=== PATIENT | male | born 1980 | race Caucasian/White ===

== ENCOUNTER 2020-07-27 20:53 | Emergency (ER) | payer SELFPAY ==
[~2020-07-27] VITALS: Ht 185.4 cm; Wt 84.5 kg
[2020-07-27 21:07] VITALS: BP 144/85
[2020-07-27] MEDS ORDERED: IBUPROFEN 200 MG TABLET. PO ONE (21:30)
[2020-07-27] MEDS ORDERED: HYDROcodone/APAP 5/325MG 1 TAB TABLET PO ONE (21:30)
[2020-07-27] MEDS ORDERED: BUPIVACAINE MPF 0.5% 30 ML VIAL. INJ ONE (21:45)
[2020-07-27] MEDS ORDERED: AMOXICILLIN/K CLAV 875/125MG TABLET. PO ONE (22:15)
[2020-07-27] MEDS ORDERED: AMOX1TAB61 PO (22:15)
[2020-07-27] MEDS ORDERED: IBUP-1007 PO (22:15)
--- NOTE | 2020-07-27 22:16 | PHYS DOC ---
General Adult EDM: Chief Complaint: DENTAL PROBLEM HPI: HPI: Patient is a 40 year old male presents emergency department complaining of lower rear left molar dental pain. Patient states his back 3 teeth on the lower side have been hurting all day today. Patient states he has been having off-and-on dental pain for the past 6 months, has not been able to get into see a dentist because he had lost his job and did not have dental insurance. Patient states she now has a new job and estimates his dental insurance "kicks in" he will see a dentist to take care of his teeth. Patient denies any loss of taste or loss of smell. Patient denies any throat pain, difficulty swallowing, loss of sensation to his face or tongue. Patient denies any chest pain, shortness of breath, abdominal pain, nausea, vomiting, diarrhea. Patient denies any allergies to medications, states that he has anxiety problems and takes a medication at home and he cannot remember the name of. Patient denies any surgical history. Patient denies headache, visual changes, neurological deficits. Patient denies pain in his neck. Patient denies any other physical complaints or physical concerns. Review of Systems: Review of Systems: 14 body systems of review of systems have been reviewed. See HPI for pertinent positives and negative responses, otherwise all other systems are negative, nonpertinent or noncontributory. Heart Score: C/O Chest Pain: No Risk Factors: Risk Factors: DM, Current or recent (<one month) smoker, HTN, HLP, family history of CAD, obesity. Risk Scores: Score 0 - 3: 2.5% MACE over next 6 weeks - Discharge Home Score 4 - 6: 20.3% MACE over next 6 weeks - Admit for Clinical Observation Score 7 - 10: 72.7% MACE over next 6 weeks - Early Invasive Strategies Current Medications: Current Medications Medications (Trade) Dose Ordered Sig/Howard Start Time Stop Time Status Last Admin Dose Admin Acetaminophen/ Hydrocodone Bitart (Lortab 5/325) 2 tab 1X ONCE 07/27/20 21:30 07/27/20 21:32 DC 07/27/20 21:43 2 TAB Bupivacaine HCl (Sensorcaine Mpf 0.5%) 30 ml 1X ONCE 07/27/20 21:45 07/27/20 21:46 DC 07/27/20 21:43 30 ML Ibuprofen (Motrin) 600 mg 1X ONCE 07/27/20 21:30 07/27/20 21:32 DC 07/27/20 21:43 600 MG Allergies: Allergies: Allergies Coded Allergies Type Severity Reaction Last Updated Verified No Known Drug Allergies 07/27/20 No Physical Exam: PE: Constitutional: Well developed, well nourished, no acute distress, non-toxic appearance. 40-year-old male, grimacing holding his left side of his face. HENT: Normocephalic, atraumatic, bilateral external ears normal, oropharynx moist, no oral exudates, nose normal. Oropharynx pink, not erythematous, no tonsillar swelling, no deep tissue infectious process appreciated, no postnasal drip. Poor dentition, multiple teeth with decay, we are 3 molars on left side and multiple stages of tooth decay, no purulent drainage appreciated. Eyes: PERRLA, EOMI, conjunctiva normal, no discharge. Neck: Normal range of motion, no tenderness, supple, no stridor. No nuchal rigidity, no meningismus signs, no midline spinal tenderness appreciated. Cardiovascular:Heart rate regular rhythm, no murmur, heart sounds S1-S2 auscultation. Lungs & Thorax: Bilateral breath sounds clear to auscultation all lung arreaga. Abdomen: Bowel sounds normal, soft, no tenderness, no masses, no pulsatile masses. Skin: Warm, dry, no erythema, no rash. Back: No tenderness, no CVA tenderness. Extremities: No tenderness, no cyanosis, no clubbing, ROM intact, no edema. Distal cap refill less than 2 seconds, +2/4 pulses. Neurologic: Alert and oriented X 3, normal motor function, normal sensory function, no focal deficits noted. Psychologic: Affect normal, judgement normal, mood normal. Current Patient Data: Vital Signs: Vital Signs Date Time Temp Pulse Resp B/P (MAP) Pulse Ox O2 Delivery O2 Flow Rate FiO2 07/27/20 21:43 16 97 Room Air EKG: EKG: [] Radiology/Procedures: Radiology/Procedures: [] Course & Med Decision Making: Course & Med Decision Making Pertinent Labs and Imaging studies reviewed. (See chart for details) 40-year-old male, vital signs reviewed, presents emergency department complaint of dental pain. Physical examination showed dental caries with various stages of dental decay. Patient started on 875 Augmentin in the ED today. Patient given 600 mg ibuprofen p.o., 2 tablets of 5/325 mg [place] in the ED today. Procedure note: Performed inferior alveolar nerve dental block using 2 cc 0.5% bupivacaine, patient tolerated well. Upon reexamination of the patient, patient states his dental pain has been relieved. Patient gave verbal understanding of discharge home instructions, antibiotic prescription use, follow-up with dentist soon, return to emergency department precautions and concerns, patient discharged home. Mal Disclaimer: Mal Disclaimer: This electronic medical record was generated, in whole or in part, using a voice recognition dictation system. Departure Departure Impression: Primary Impression: Dental caries Additional Impression: Dentalgia Disposition: 01 DC HOME SELF CARE/HOMELESS Condition: IMPROVED Referrals: NO PCP (PCP) Patient Instructions: Dental Caries Additional Instructions: Please take antibiotic as prescribed, follow-up with your dentist soon. Return to the emergency department for worsening symptoms or other concerns. EMERGENCY DEPARTMENT GENERAL DISCHARGE INSTRUCTIONS Thank you for coming to [facility] Emergency Department (ED) today and trusting us with you care. We trust that you had a positive experience in our Emergency Department. If you wish to speak to the department management, you may call the Director at [phone]. YOUR FOLLOW UP INSTRUCTIONS ARE FOLLOWS: 1. Do you have a private Doctor? If you do not have a private doctor, please ask for a resource list of physicians or clinics that may be able to assist you with follow up care. 2. The Emergency Physicain has interpreted your x-rays. The X-Ray specialist will also review them. If there is a change in the findings, you will be notified in 48 hours when at all possible. 3. A lab test or culture has been done, your results will be reviewed and you will be notified if you need a change in treatment. ADDITIONAL INSTRUCTIONS AND INFORMATION: 1. Your care today has been supervised by a physician who is specially trained in emergency care. Many problems require more than one evaluation for a complete diagnosis and treatment. We recommend that you schedule your follow up appointment as recommended to ensure complete treatment of you illness or injury. If you are unable to obtain follow up care and continue to have a problem, or if your condition worsens, we recommend that you return to the ED. 2. We are not able to safely determine your condition over the phone nor are we able to give sound medical advice over the phone. For these safety reasons, if you call for medical advice we will ask you to come to the ED for further evaluation. 3. If you have any questions regarding these discharge instructions please call the ED at [phone]. SAFETY INFORMATION: In the interest of safety, wellness, and injury prevention; we encourage you to wear your sealbelt, if you smoke; quite smoking, and we encourage family to use a protective helmet for bicycling and other sporting events that present an increased risk for head injury. IF YOUR SYMPTOMS WORSEN OR NEW SYMPTOMS DEVELOP, OR YOU HAVE CONCERNS ABOUT YOUR CONDITION; OR IF YOUR CONDITION WORSENS WHILE YOU ARE WAITING FOR YOUR FOLLOW UP APPOINTMENT; EITHER CONTACT YOUR PRIMARY CARE DOCTOR, THE PHYSICIAN WHOSE NAME AND NUMBER YOU WERE GIVEN, OR RETURN TO THE ED IMMEDIATELY. Scripts Ibuprofen (IBUPROFEN) 600 Mg Tablet 600 MG PO PRN Q6HRS PRN for INFLAMMATION, #20 TAB 0 Refills Prov: GISELLA PLASCENCIA APRN 07/27/20 Amoxicillin/Potassium Clav (AUGMENTIN 875-125 TABLET) 1 Each Tablet 1 TAB PO BID for DENTAL INFECTION for 7 Days, #14 TAB 0 Refills Prov: GISELLA PLASCENCIA APRN 07/27/20 GISELLA PLASCENCIA APRN Jul 27, 2020 22:16
== END 2020-07-27 23:15 | disposition home or self-care (01) ==
LOC: ER 20:53
DX: K02.9 Dental caries, unspecified (principal); K08.89 Other specified disorders of teeth and supporting structures
CPT/HCPCS: 64400; 99284; J3490

== ENCOUNTER 2021-10-13 07:12 | Emergency (ER) | payer BC ==
[~2021-10-13] VITALS: Ht 185.4 cm; Wt 85.0 kg
[~2021-10-13 07:12] MED LIST: AMOX1TAB61 PO; IBUP-1007 PO
[2021-10-13 07:25] VITALS: BP 125/78
--- NOTE | 2021-10-13 07:34 | ED.ADGEN ---
Past Medical History Past Medical History: Other Additional Past Medical Histor: "BOARDERLINE DIABETIC" Past Surgical History: Appendectomy Smoking Status: Never Smoker Alcohol Use: None General Adult HPI: HPI: Patient is a 41-year-old male who arrives ambulatory to the emergency department complaint of left shoulder pain. Patient reportedly fell from a ladder 3 days ago. Patient reports he was on the second rung of the ladder and the ladder tipped. Patient reports he landed directly on his left shoulder and since that time is been unable to lift his left upper extremity above his nipple line. Patient states he is left-hand dominant and this pain both anteriorly as well as posteriorly in the left shoulder. Despite this he denies injury otherwise. He further denies any head trauma and states he is without neck pain. However he denies any prodromal symptoms prior to falling or any changes level consciousness from the fall. He is awake, alert and nontoxic-appearing Review of Systems: Review of Systems: Constitutional: Denies fever or chills. [] Eyes: Denies change in visual acuity. [] HENT: Denies nasal congestion or sore throat. [] Respiratory: Denies cough or shortness of breath. [] Cardiovascular: Denies chest pain or edema. [] GI: Denies abdominal pain, nausea, vomiting, bloody stools or diarrhea. [] : Denies dysuria. [] Musculoskeletal: Reports joint pain as well as extremity pain confined to left shoulder. Denies back pain. [] Integument: Denies rash. [] Neurologic: Denies headache, focal weakness or sensory changes. [] Endocrine: Denies polyuria or polydipsia. [] Lymphatic: Denies swollen glands. [] Psychiatric: Denies depression or anxiety. [] Allergies: Allergies: Allergies Coded Allergies Type Severity Reaction Last Updated Verified No Known Drug Allergies 07/27/20 No Physical Exam: PE: Constitutional: Well developed, well nourished, no acute distress, non-toxic appearance. [] HENT: Normocephalic, atraumatic, bilateral external ears normal, oropharynx moist, no oral exudates, nose normal. [] Eyes: PERRLA, EOMI, conjunctiva normal, no discharge. [] Neck: Normal range of motion, no tenderness, supple, no stridor. [] Cardiovascular:Heart rate regular rhythm, no murmur [] Lungs & Thorax: Bilateral breath sounds clear to auscultation [] Abdomen: Bowel sounds normal, soft, no tenderness, no masses, no pulsatile masses. [] Skin: Warm, dry, no erythema, no rash. [] Back: No tenderness, no CVA tenderness. [] Extremities: Patient has tenderness palpation of the left shoulder which is exacerbated by range of motion testing. Patient does have full range of motion however experiences great pain with overall range of motion testing. No cyanosis, no clubbing, ROM intact, no edema. [] Neurologic: Alert and oriented X 3, normal motor function, normal sensory function, no focal deficits noted. [] Psychologic: Affect normal, judgement normal, mood normal. [] Current Patient Data: Vital Signs: Vital Signs Date Time Temp Pulse Resp B/P (MAP) Pulse Ox O2 Delivery O2 Flow Rate FiO2 10/13/21 07:25 98.3 70 16 125/78 (94) 100 Room Air 98.3 EKG: EKG: [] Heart Score: C/O Chest Pain: No Risk Factors: Risk Factors: DM, Current or recent (<one month) smoker, HTN, HLP, family history of CAD, obesity. Risk Scores: Score 0 - 3: 2.5% MACE over next 6 weeks - Discharge Home Score 4 - 6: 20.3% MACE over next 6 weeks - Admit for Clinical Observation Score 7 - 10: 72.7% MACE over next 6 weeks - Early Invasive Strategies Radiology/Procedures: Radiology/Procedures: [][facility] [address] [place], [place] [id number] IMAGING REPORT Signed PATIENT: MADDY LANDERS ACCOUNT: [id number] : 1980 LOCATION: ER AGE: 41 SEX: M EXAM STATUS: REG ER ORD. PHYSICIAN: MOHINI ELLIOTT DO REASON: fall/pain PROCEDURE: SHOULDER 2+V LEFT XR SHOULDER_LEFT 2+ VIEWS History: Reason: fall/pain / Spl. Instructions: / History: Technique: 3 views left shoulder Comparison: None. Findings: No dislocation. No acute fracture. Impression: 1. No acute osseous abnormality. Electronically signed by: Osiel Vargas DO (10/13/2021 8:02 AM) [id number] DICTATED and SIGNED BY: OSIEL VARGAS DO DATE: 10/13/21 0800 Course & Med Decision Making: Course & Med Decision Making Pertinent Labs and Imaging studies reviewed. (See chart for details) Upon arrival patient was taken to room 6 in the emergency department. History and physical examination were obtained. Patient does report her shoulder pain only. Imaging was obtained and revealed no acute osseous abnormality. I have advised the patient to take a shoulder throughout range of motion as best he can. Should he have continued pain in 1 week he is been advised to follow-up with his primary care physician for orthopedic referral. The patient remains neurologically intact after reevaluation. The patient is stable for discharge Dragon Disclaimer: Mal Disclaimer: This electronic medical record was generated, in whole or in part, using a voice recognition dictation system. Departure Departure Impression: Primary Impression: Shoulder contusion Disposition: LEFT AWOL/ELOPED Condition: STABLE Referrals: NO PCP (PCP) Patient Instructions: Shoulder Exercises, Generic, SportsMed, Shoulder Sprain Additional Instructions: Follow-up with primary care physician in 1 week. Scripts Tizanidine Hcl (ZANAFLEX) 4 Mg Tablet 1 TAB PO BID for 7 Days, #14 TAB 0 Refills Prov: MOHINI ELLIOTT DO 10/13/21 Tramadol Hcl (ULTRAM) 50 Mg Tablet 50 MG PO Q6HRS PRN for PAIN for 3 Days, #12 TAB 0 Refills Prov: MOHINI ELLIOTT DO 10/13/21 MOHINI ELLIOTT DO October 13, 2021 07:34
--- NOTE | 2021-10-13 08:05 | RAD ---
XR SHOULDER_LEFT 2+ VIEWS History: Reason: fall/pain / Spl. Instructions: / History: Technique: 3 views left shoulder Comparison: None. Findings: No dislocation. No acute fracture. Impression: 1. No acute osseous abnormality. Electronically signed by: Osiel Reilly DO (10/13/2021 8:02 AM) [id number]
[2021-10-13] MEDS ORDERED: TIZA4TAB8 PO (08:12)
[2021-10-13] MEDS ORDERED: TRAM-48 PO (08:12)
== END 2021-10-13 08:24 | disposition left against medical advice (07) ==
LOC: ER 07:12
DX: S40.012A Contusion of left shoulder, initial encounter (principal); W11.XXXA Fall on and from ladder, initial encounter; Y93.89 Activity, other specified; Y92.89 Other specified places as the place of occurrence of the external cause; Y99.8 Other external cause status
CPT/HCPCS: 73030; 99283